=== PATIENT | male | born 2000 | race Two or more races ===

== ENCOUNTER 2025-01-01 08:27 | Day surgery (SDC) | payer OTHER, SELFPAY ==
--- OUTSIDE RECORDS SUMMARY | 2024-12-07 10:15 | XMS_ITS ---
Author Name [facility] Organization Unknown Care Team Organization Name Specialty Phone Email Start Date End Da te [facility] JOHANNE FERGUSON Primary Care 06/23/2022 12/05/2023 [facility] Amanda Shultz MD Primary Care 04/26/2022 12/05/2023 [facility] Termed, PROVIDER Primary Care 02/23/202211/16
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
--- OUTSIDE RECORDS SUMMARY | 2024-12-07 10:16 | XMS_ITS | Patient Health Record ---
Author Organization [facility] Address [address] [place] [address] Care Team Providers Care Coat Hanger Shaper Machine Operator Name Role Phone HALEYALTHEA Lawrence Primary Care Provider Jaizel Caputo Jr Allergies No Known Allergies Reason For Referral No Information Medications Medication SIG (Take, Route, Fr equency, Duration) Notes Start Date End Date Status Albuterol Active cloNIDine 0.3 MG/24HR 1 patch to skin Transdermal Active Adderall 20 MG 1 tablet Orally Twice a day Active Social History Tobacco Use: Social History Observation Description Date Details (start date - stop date) Never Smoker NA - NA Tobacco Control (Standard) Question Answer Notes Tobacco use: Nonsmoker AUDIT-C (Standard) Question Answer Notes Did you have a drink containing alcohol in the p ast year? No Points 0 Interpretation Negative Vital Signs Blood pressure diastolic 77 mm Hg 12/06/2024 Height 68 in 12/06/2024 Blood pressure systolic 111 mm Hg 12/06/2024 Weight 147 lbs 12/06/2024 BMI 22.35 kg/m2 12/06/2024 Encounters Encounter Location Date Provider Diagnosis [facility] [address] [place] [phone] 12/06/2024 Jaziel Neal Jr Hemorrhage of anus and rectum K62.5 Assessments Encounter Date Diagnosis (ICD Code) Assessment Notes Treatment Notes Treatment Clinical Notes Section Notes 12/06/2024 Hemorrhage of anus and rectum (ICD-10 - K62.5) We discussed the differential diagnosis for rectal bleeding today. We discussed risks and benefits of further evaluation including colonoscopy. He understands these and agrees to proceed. This will be arranged at his convenience. Plan Of Treatment Future Test Test Name Order Date COLONOSCOPY 12/06/2024 Next Appt Details Provider Name:Jazielharman marti Jr, 01/01/2025 11:10:00 AM, [address] [place] [address] , [place], [place], [id number], Insurance Providers Payer Name Payer Address Payer Phone Subscriber Number Group Number Insured Name Patient Relationship to Insured Coverage Start Date Coverage End Date [facility] [address] [address] [place], [place] [id number] IVELISSE BELL Self - patient is the insured Medical (General) History Medical History History ICD Code Denies [place],DM,CVA,Lung disease,renal dise ase asthma- exercise induced
[2024-12-28 14:50] VITALS: BMI 22.3
--- NOTE | 2024-12-31 09:30 | P.CONAN_ITS ---
Documented by User: Sigrid Moise NP 12/31/24 09:30 HPI - Anesthesia Eval Consult details Narrative: 24yo M for Colonoscopy PMFSH Past Medical History Medical History Asthma Surgical History Surgical History No pertinent past surgical history Social History Social History Are you a primary animal care service worker to a significant other at home: No Do you presently have visiting nurse or other home services: No Patient Tobacco Use Status: Never used Tobacco Second Hand Smoke Exposure: No Use of substances other than those prescribed or required for medical reasons: No Have you been hit, kicked, punched, or otherwise hurt by someone within the past year? If so, by whom?: No Are you DNR?: No Advance Directives: No Advance Directives Information Provided: Yes Advance Directives on File: No Poor oral hygiene: No Meds Allergies Allergy/AdvReac Type Severity Reaction Status Date / Time No Known Allergies Allergy Verified 12/28/24 14:44 Home Medications ?Medication ?Instructions ?Recorded ?Confirmed ?Last Taken ?Type albuterol sulfate 90 mcg/actuation 1 inh inhalation QI D PRN Shortness 12/28/24 01/01/25 Unknown History aerosol inhaler Of Breath Or Wheezing clonidine HCl 0.3 mg tablet 0.3 mg PO DAILY 12/28/24 0 01/01/25 Unknown History dextroamphetamine-amphetamine 20 20 mg PO BID 12/28/24 01/01/25 01/01/25 History mg tablet (Adderall) Exam Height,Weight and Vital Signs: Height 5 ft 8 in Weight 66.678 kg Assessment and Plan Assessment Anesthesia Assessment: Chart Reviewed Documented by User: Angela Hunter MD 01/01/25 10:54 [facility] Active Problems Active Problems: ADHD Asthma Past Medical History Medical History Asthma Surgical History Surgical History No pertinent past surgical history History of Problems with Anesthesia: No Social History Social History Are you a primary animal care service worker to a significant other at home: No Do you presently have visiting nurse or other home services: No Patient Tobacco Use Status: Never used Tobacco Second Hand Smoke Exposure: No Use of substances other than those prescribed or required for medical reasons: No Have you been hit, kicked, punched, or otherwise hurt by someone within the past year? If so, by whom?: No Are you DNR?: No Advance Directives: No Advance Directives Information Provided: Yes Advance Directives on File: No Poor oral hygiene: No Meds Allergies Allergy/AdvReac Type Severity Reaction Status Date / Time No Known Allergies Allergy Verified 12/28/24 14:44 Home Medications ?Medication ?Instructions ?Recorded ?Confirmed ?Last Taken ?Type albuterol sulfate 90 mcg/actuation 1 inh inhalation QI D PRN Shortness 12/28/24 01/01/25 Unknown History aerosol inhaler Of Breath Or Wheezing clonidine HCl 0.3 mg tablet 0.3 mg PO DAILY 12/28/24 0 01/01/25 Unknown History dextroamphetamine-amphetamine 20 20 mg PO BID 12/28/24 01/01/25 01/01/25 History mg tablet (Adderall) Exam Airway Mallampati Class: II TM Dist: >3cm Neck ROM: Full Loose/Missing/Broken Teeth: No Heart: RRR Lungs: CTA Assessment and Plan Assessment Anesthesia Assessment: Anesthesia Plan Discussed Final Anesthetic Review History of Problems with Anesthesia: No NPO: Yes ASA Class: II Final Preanesthetic Review: Meds/Allgs Chart Reviewed, Consent Obtained/Reviewed and Anes Risks/Benef Reviewed Patient Risk: Low Procedure Risk: Low Anesthetic Plan Anesthetic Plan: MAC: Disposition: Standard PACU
[2025-01-01 09:21] VITALS: BMI 22.7
[2025-01-01 09:29] VITALS: BP 159/96; PULSE 97; RESP 16; TEMP 37; O2SAT 100
[2025-01-01] MEDS: Lactated Ringers 1,000 ML 100 ML IVCONT (09:32)
--- NOTE | 2025-01-01 11:27 | MHC.SHP ---
Pre-Procedural Eval Section A - 24 Hr Update-Section A only Date of Service: 01/01/25 Section B - Complete if H&P > 30 days Chief Complaint: Hemorrhage of anus and rectum Details of Present Illness: see H&P no changes Relevant Family History (Specify if Yes): No Relevant Social History: None Present Medications: see Short Stay Collaborative assessment Medical History: No relevant PMH History of Previous Operations: No relevant previous surgery Allergies: Allergies Allergy/AdvReac Type Severity Reaction Status Date / Time No Known Allergies Allergy Verified 12/28/24 14:44 Review of Systems Sugical H&P ROS: Negative: Constitution, Cardiovascular, Respiratory, Neurological, Psychiatric, Hem-Onc, Allergic/Immunologic, Gastrointestinal, Genitourinary, Musculoskeletal, Integumentary, Endocrine and Eyes/Ears/Nose/Throat Exam Surgical H&P Exam: Normal: HEENT, Normal: Heart, Normal: Lungs, Normal: Extremities, Normal: Abdomen, Normal: Skin and Normal: Neurological Plan I have reviewed the history and physical and performed a pertinent physical examination on my patient. No changes have occurred unless specified. Time Spent With Patient Time: Total time managing care of this patient today ____ minutes.
[2025-01-01 11:56] VITALS: BP 91/43; PULSE 99; RESP 18; TEMP 36.3; O2SAT 98
[2025-01-01 12:11] VITALS: BP 111/67; PULSE 85; RESP 18; TEMP 36.6; O2SAT 99
[2025-01-01 12:26] VITALS: BP 115/71; PULSE 82; RESP 18; TEMP 36.6; O2SAT 98
--- NOTE | 2025-01-01 13:27 | OP_ITS ---
DATE OF SERVICE: 01/01/2025 SURGEON: Jaziel Neal MD INDICATIONS: Rectal bleeding. PREOPERATIVE DIAGNOSIS: POSTOPERATIVE DIAGNOSIS: PROCEDURE PERFORMED: Colonoscopy to the terminal ileum with biopsy. ESTIMATED BLOOD LOSS: COMPLICATIONS: ANESTHESIA: Monitored anesthesia care. ASSISTANTS: SPECIMENS: DESCRIPTION OF PROCEDURE: A history and physical was performed. The risks and benefits of the procedure were explained to the patient, and informed consent was obtained. The patient was placed in the left lateral decubitus position. A digital rectal exam was performed and was found to be normal. The Olympus pediatric video colonoscope was introduced into the rectum and advanced to the cecum. The cecum was identified by transillumination, palpation, and identification of the ileocecal valve. Examination was performed. The scope was removed. He tolerated the procedure well and was returned to the recovery area in stable condition. FINDINGS: The terminal ileum was normal. The visualized colonic mucosa was normal. The quality of the prep was good. No polyps were identified. There was some mild nonspecific erythema in the rectum. Random biopsies were obtained from the rectum and from the sigmoid. Retroflexed examination was normal. IMPRESSION: Normal colonoscopy. RECOMMENDATION: Follow up the biopsy results. MD JAYNE Curran/WHIT / [id number]
== END 2025-01-01 13:19 | disposition home or self-care (01) ==
PROVIDERS: PCP Internal Medicine; Visit Provider Internal Medicine Gastroenterology
PROC: 0DJD8ZZ Inspection of Lower Intestinal Tract, Via Natural or Artificial Opening Endoscopic (ICD-10-PCS; CPT 45378; principal; 2025-01-01 11:10)
DX: K62.5 Hemorrhage of anus and rectum (principal); Z83.719 Family history of colon polyps, unspecified; J45.909 Unspecified asthma, uncomplicated; Z79.899 Other long term (current) drug therapy
CPT/HCPCS: 45380; 88305; J2003; J2704